=== PATIENT | female | born 1930 | race African-American/Black ===

== ENCOUNTER 2017-01-31 08:39 | Inpatient (IN) | payer MEDICARE ==
[~2017-01-31] VITALS: Ht 165.1 cm; Wt 63.5 kg
[~2017-01-31 08:39] MED LIST: ASPI-482 PO; Aspirin PO; CYCL1DRO OU; DONE10TA14 PO; FERR-26 PO; LEVO25TA2 PO; OXYB5TAB7 PO; PANT20TA2 PO; PANT40TA3 PO
[2017-01-31] MEDS ORDERED: IV NORMAL SALINE 500ML BAG 500 ML IV ONE ×2 (09:00→11:15)
--- NOTE | 2017-01-31 09:03 | PHYS DOC ---
Past Medical History Past Medical History: Dementia, Diabetes-Type II, GERD, Other Past Surgical History: Hysterectomy Alcohol Use: None Drug Use: None Adult General Chief Complaint Chief Complaint: MECHANICAL FALL HPI HPI 86 yo female who present after a fall last evening in which she states she was trying to get out of bed and fell. She states she fell onto her left side and laid there for 10-12 hour before being able to call for help. She has an obvious left wrist swelling and bruising is also complaining of left hip pain as well. There is no obvious shortening of the left lower extremity. Just complaining primarily of left wrist pain and is unable to move her left wrist secondary to pain. She denies hitting her head or having any loss consciousness. She lives alone and takes no medications. She denies any chest pain or SOB. Review of Systems Review of Systems Constitutional: Denies fever or chills [] Eyes: Denies change in visual acuity, redness, or eye pain [] HENT: Denies nasal congestion or sore throat [] Respiratory: Denies cough or shortness of breath [] Cardiovascular: No additional information not addressed in HPI [] GI: Denies abdominal pain, nausea, vomiting, bloody stools or diarrhea [] : Denies dysuria or hematuria [] Musculoskeletal: Denies back pain, has joint pain [] Integument: Denies rash or skin lesions [] Neurologic: Denies headache, focal weakness or sensory changes [] Endocrine: Denies polyuria or polydipsia [] Current Medications Current Medications Current Medications Medications (Trade) Dose Ordered Sig/Thom Start Time Stop Time Status Last Admin Dose Admin Acetaminophen 650 mg 650 mg PRN Q4HRS PRN 01/31/17 12:00 02/01/17 11:59 Fentanyl Citrate (Fentanyl 2ml Vial) 50 mcg PRN Q2HR PRN 01/31/17 12:00 02/01/17 11:59 Fentanyl Citrate 50 mcg 50 mcg 1X ONCE 01/31/17 10:15 01/31/17 10:16 DC 01/31/17 10:20 50 MCG Ondansetron HCl (Zofran) 4 mg PRN Q8HRS PRN 01/31/17 12:00 02/01/17 11:59 Sodium Chloride (Iv Sodium Chloride 0.9% 500ml Bag) 500 ml @ 500 mls/hr 1X ONCE 01/31/17 11:15 01/31/17 12:14 DC Sodium Chloride (Iv Sodium Chloride 0.9% 1000ml Bag) 1,000 ml @ 100 mls/hr 1X ONCE 01/31/17 12:00 01/31/17 21:59 Allergies Allergies Allergies Coded Allergies Type Severity Reaction Last Updated Verified No Known Drug Allergies 11/04/13 No Physical Exam Physical Exam Constitutional: Well developed, well nourished, no acute distress, non-toxic appearance. [] HENT: Normocephalic, atraumatic, bilateral external ears normal, oropharynx moist, no oral exudates, nose normal. [] Eyes: PERRLA, EOMI, conjunctiva normal, no discharge. [] Neck: Normal range of motion, no tenderness, supple, no stridor. [] Cardiovascular:Heart rate regular rhythm, no murmur [] Lungs & Thorax: Bilateral breath sounds clear to auscultation [] Abdomen: Bowel sounds normal, soft, no tenderness, no masses, no pulsatile masses. [] Skin: Warm, dry, no erythema, no rash. [] Back: No tenderness, no CVA tenderness. [] Extremities: Moderate left wrist tenderness with swelling and deformity, no cyanosis, no clubbing, ROM limited in left wrist secondary to pain. [] Neurologic: Alert and oriented X 3, normal motor function, normal sensory function, no focal deficits noted. [] Psychologic: Affect normal, judgement normal, mood normal. [] Current Patient Data Vital Signs Vital Signs Date Time Temp Pulse Resp B/P Pulse Ox O2 Delivery O2 Flow Rate FiO2 01/31/17 10:20 22 01/31/17 08:45 98.8 105 186/99 97 Room Air 98.8 Lab Values Laboratory Tests Test 01/31/17 09:10 01/31/17 09:17 01/31/17 11:05 01/31/17 11:45 White Blood Count 12.8x10^3/uL (4.0-11.0) H Red Blood Count 5.23x10^6/uL (3.50-5.40) Hemoglobin 11.8g/dL (12.0-15.5) L Hematocrit 37.5% (36.0-47.0) Mean Corpuscular Volume 72fL (79-100) L Mean Corpuscular Hemoglobin 23pg (25-35) L Mean Corpuscular Hemoglobin Concent 32g/dL (31-37) Red Cell Distribution Width 18.8% (11.5-14.5) H Platelet Count 368x10^3/uL (140-400) Neutrophils (%) (Auto) 84% (31-73) H Lymphocytes (%) (Auto) 8% (24-48) L Monocytes (%) (Auto) 8% (0-9) Eosinophils (%) (Auto) 0% (0-3) Basophils (%) (Auto) 0% (0-3) Neutrophils # (Auto) 10.8x10^3uL (1.8-7.7) H Lymphocytes # (Auto) 1.0x10^3/uL (1.0-4.8) Monocytes # (Auto) 1.0x10^3/uL (0.0-1.1) Eosinophils # (Auto) 0.0x10^3/uL (0.0-0.7) Basophils # (Auto) 0.1x10^3/uL (0.0-0.2) Platelet Estimate Pending Troponin I Quantitative < 0.017ng/mL (0.000-0.055) Urine Collection Type U cath Urine Color Yellow Urine Clarity Clear Urine pH 7.0 Urine Specific [place] 1.020 Urine Protein Negativemg/dL (NEG-TRACE) Urine Glucose (UA) Negativemg/dL (NEG) Urine Ketones (Stick) Negativemg/dL (NEG) Urine Blood Negative (NEG) Urine Nitrite Negative (NEG) Urine Bilirubin Negative (NEG) Urine Urobilinogen Dipstick 0.2mg/dL (0.2 mg/dL) Urine Leukocyte Esterase Negative (NEG) Urine RBC 0/HPF (0-2) Urine WBC 1-4/HPF (0-4) Urine Squamous Epithelial Cells Few/LPF Urine Bacteria Many/HPF (0-FEW) Urine Mucus Slight/LPF Sodium Level 136mmol/L (136-145) Potassium Level 4.4mmol/L (3.5-5.1) Chloride Level 101mmol/L (98-107) Carbon Dioxide Level 24mmol/L (21-32) Anion Gap 11 (6-14) Blood Urea Nitrogen 20mg/dL (7-20) Creatinine 1.2mg/dL (0.6-1.0) H Estimated GFR (Cockcroft-Gault) 51.8 Glucose Level 132mg/dL (70-99) H Calcium Level 9.1mg/dL (8.5-10.1) Creatine Kinase 134U/L (26-192) Laboratory Tests 01/31/17 09:10 Laboratory Tests 01/31/17 11:45 EKG EKG EKG as interpreted by me shows a sinus tachycardia with a rate of 104 bpm. There are no obvious ischemic findings. Intervals are normal. Radiology/Procedures Radiology/Procedures CT of the head without contrast demonstrated the following: There is prominence of cortical sulci and ventricular system compatible with age related atrophy. There are areas of low-attenuation in both periventricular deep white matter suggesting small vessel ischemic changes. Normal mg-white differentiation is maintained. There is no extra axial fluid collection, intraparenchymal hemorrhage or mass lesion. The visualized portions of the orbits, paranasal sinuses and the mastoid air cells appear clear. The calvarium is intact. Exam performed: X-ray left elbow, left hip, left wrist and one view chest. History: Patient fell last night, complaining of left-sided pain. Date of service: 01/31/17. Comparison: X-ray left hand from 11/11/13 and one view chest from 09/29/16. 3 views left wrist findings: There is narrowing of first carpometacarpal joint with periarticular sclerosis. The remainder alignment appears preserved. There is no acute fracture or dislocation. Diffuse soft tissue swelling is seen. No foreign body. Impression: 1. Diffuse soft tissue swelling without underlying acute bony abnormality. 2. 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 End impression Single supine AP view chest: Heart size is apparently enlarged probably accentuated due to supine position. Ectatic tortuous aorta with atheromatous calcification of the aortic knob. Prominent interstitial markings are seen in both lungs. No focal infiltrates, effusion or pneumothorax seen. Bones are normal Impression: 1. No acute cardiac pulmonary process seen. 2. Hiatal hernia redemonstrated. End impression. 2 views left hip findings: Single AP view pelvis and 2 views left hip are obtained. Mild narrowing of both hip joints with mild degenerative arthrosis Normal sacroiliac joints is maintained. There is no acute fracture or dislocation. Spondylotic changes involving the lumbar spine. Nonspecific bowel gas pattern. Impression: 1. No acute abnormality seen in the single view pelvis and left hip. 2. Early degenerative arthrosis involving both hips. End impression. Left elbow 3 views: Normal alignment of the elbow joint is preserved. There is no acute fracture or dislocation. No soft tissue swelling or joint effusion seen. Impression: 1. No acute abnormality seen in the left elbow. DICTATED and SIGNED BY: DOROTHY ORELLANA MD DATE: 01/31/17 1021 CC: ALEXEI SUNSHINE DO; KIARA RIVERA MD ~ Course & Med Decision Making Course & Med Decision Making Pertinent Labs and Imaging studies reviewed. (See chart for details) 86 yo old female who had a fall and was down for multiple hours will be admitted to the hospital for further evaluation and treatment. She has extensive pain to the left hip and left wrist and I deemed her to be a significant fall risk. Her laboratory workup was fairly unremarkable. She has a slightly elevated white count but no obvious source of infection is seen and her urinalysis is negative for signs of infection. I performed a chest few that did not reveal any signs of pneumonia. There are no acute findings on any of her plain films. A CT of her head was also negative for any acute intracranial pathology. I discussed the need to admit the patient with the hospitalist, Dr. Munroe, who agreed to accept the patient for further evaluation and treatment. Dragon Disclaimer Dragon Disclaimer This electronic medical record was generated, in whole or in part, using a voice recognition dictation system. Departure Departure Impression: Primary Impression: Weakness Disposition: ADMITTED INPATIENT Admitting Physician: Kane Munroe Condition: STABLE Referrals: KIARA RIVERA MD (PCP) ALEXEI SUNSHINE DO Jan 31, 2017 09:02
[2017-01-31] MEDS ORDERED: FENTANYL PF 100 MCG/2 ML VIAL. IV ONE ×2 (09:15→10:15)
--- NOTE | 2017-01-31 09:40 | RAD ---
Exam performed: CT scan of the head without contrast. Date of Service: 01/31/17. Comparison: CT head without contrast from 04/11/15. Clinical History: Headache, status post fall, history of dementia. Technique: Helical acquisitions are obtained from the foramen magnum to the vertex without intravenous administration of contrast. Findings: There is prominence of cortical sulci and ventricular system compatible with age related atrophy. There are areas of low-attenuation in both periventricular deep white matter suggesting small vessel ischemic changes. Normal mg-white differentiation is maintained. There is no extra axial fluid collection, intraparenchymal hemorrhage or mass lesion. The visualized portions of the orbits, paranasal sinuses and the mastoid air cells appear clear. The calvarium is intact. Impression: 1. Age-appropriate atrophy without any acute intracranial process. PQRS Compliance Statement: One or more of the following individualized dose reduction techniques were utilized for this examination: 1. Automated exposure control 2. Adjustment of the mA and/or kV according to patient size 3. Use of iterative reconstruction technique
--- NOTE | 2017-01-31 10:29 | RAD ---
Exam performed: X-ray left elbow, left hip, left wrist and one view chest. History: Patient fell last night, complaining of left-sided pain. Date of service: 01/31/17. Comparison: X-ray left hand from 11/11/13 and one view chest from 09/29/16. 3 views left wrist findings: There is narrowing of first carpometacarpal joint with periarticular sclerosis. The remainder alignment appears preserved. There is no acute fracture or dislocation. Diffuse soft tissue swelling is seen. No foreign body. Impression: 1. Diffuse soft tissue swelling without underlying acute bony abnormality. 2. 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 End impression Single supine AP view chest: Heart size is apparently enlarged probably accentuated due to supine position. Ectatic tortuous aorta with atheromatous calcification of the aortic knob. Prominent interstitial markings are seen in both lungs. No focal infiltrates, effusion or pneumothorax seen. Bones are normal Impression: 1. No acute cardiac pulmonary process seen. 2. Hiatal hernia redemonstrated. End impression. 2 views left hip findings: Single AP view pelvis and 2 views left hip are obtained. Mild narrowing of both hip joints with mild degenerative arthrosis Normal sacroiliac joints is maintained. There is no acute fracture or dislocation. Spondylotic changes involving the lumbar spine. Nonspecific bowel gas pattern. Impression: 1. No acute abnormality seen in the single view pelvis and left hip. 2. Early degenerative arthrosis involving both hips. End impression. Left elbow 3 views: Normal alignment of the elbow joint is preserved. There is no acute fracture or dislocation. No soft tissue swelling or joint effusion seen. Impression: 1. No acute abnormality seen in the left elbow.
[2017-01-31 11:08] LABS: BASO # 0.1 x10^3/uL (0.0-0.2); BASO % 0 % (0-3); EOS % 0 % (0-3); HEMATOCRIT 37.5 % (36.0-47.0); HEMOGLOBIN 11.8 g/dL (12.0-15.5); LYMPH % 8 % (24-48); MEAN CORPUSCULAR HEMOGLOBIN 23 pg (25-35); MEAN CORPUSCULAR HGB CONC 32 g/dL (31-37); MEAN CORPUSCULAR VOLUME 72 fL (79-100); MONO % 8 % (0-9); NEUT % 84 % (31-73); PLATELET COUNT 368 x10^3/uL (140-400); RED BLOOD COUNT 5.23 x10^6/uL (3.50-5.40); RED CELL DISTRIBUTION WIDTH 18.8 % (11.5-14.5); WHITE BLOOD COUNT 12.8 x10^3/uL (4.0-11.0)
--- NOTE | 2017-01-31 11:09 | EKG ---
[facility] [address] [place] [id number] Test Date: 2017-01-31 Test Time: 08:56:00 Pat Name: PATIENCE MCKEON Department: Room: Gender: F Roll Former: : 1930 Requested By: ALEXEI SUNSHINE Order Number: [id number] Reading MD: Measurements Intervals [place] Rate: 104 P: 68 MT: 188 QRS: 66 QRSD: 72 T: 56 QT: 320 QTc: 427 Interpretive Statements SINUS TACHYCARDIA RI6.01 Unconfirmed report No previous ECG available for comparison
[2017-01-31 11:23] LABS: BILIRUBIN,URINE NEGATIVE (NEG); GLUCOSE,URINE NEGATIVE (NEG); NITRITE,URINE NEGATIVE (NEG); PROTEIN,URINE NEGATIVE (NEG-TRACE); UROBILINOGEN,URINE 0.2 mg/dL (0.2 mg/dL)
--- NOTE | 2017-01-31 11:42 | ACF ---
Admission Forms Criteria MUSCULOSKELETAL DISEASE GRG Clinical Indications for Admission to Inpatient Care (Place 'X' for any and all applicable criteria): Hospital admission is needed for appropriate care of the patient because of ANY ONE of the following: [X]I. Fracture, dislocation, or other musculoskeletal injury requiring inpatient care(medical) as indicated by ANY ONE of the following(4)(5)(6)(7) [ ]a) Vertebral fracture requiring observation for instability or neurologic compromise (8) [ ]b) Compartment syndrome (proven or cannot be ruled out during observation level of care) (9) [ ]c) Limb-threatening injury [ ]d) Major injury requiring inpatient stabilization such as traction initiation or external fixation before internal fixation or closure of complex or open fracture [ ]e) Major injury requiring inpatient treatment after emergency or observation level care (as appropriate) [X]f) Severe pain requiring acute inpatient management [ ]II. Newly diagnosed or suspected bone, joint, or orthopedic device infection (e.g., osteomyelitis, septic arthritis) needing ANY ONE of the following(1)(2)(3) [ ]a) IV antibiotics that cannot be initiated in other than inpatient setting (e.g., patient too unstable or home infusion not available) [ ]b) Device removal or replacement [ ]c) Bone or soft tissue debridement [ ]d) Joint drainage (drain placement or repetitive aspirations) [ ]III. Severe rheumatologic disease (e.g., systemic lupus erythematosus, rheumatoid arthritis) with complications or comorbidities (Also use Optimal Recovery Care Criteria or General Recovery Criteria as appropriate on the basis of predominant condition), including ANY ONE of the following(10 )(11)(12)(13) [ ]a) Severe infection (e.g., [employer] SUPER[employer]OR infection, sepsis) (14) [ ]b) Respiratory complications, including ANY ONE of the following: [ ]i) Pleural effusion with respiratory compromise [ ]ii) Pulmonary hypertension with congestive failure [ ]iii) Respiratory failure [ ]iv) Pulmonary hemorrhage (15) [ ]c) Hematologic disease, including ANY ONE of the following: [ ]i) Coagulopathy with bleeding [ ]ii) Thrombosis with hypercoagulable state [ ]iii) Thrombotic thrombocytopenic purpura [ ]d) Cerebritis with seizures, psychosis, or other severe abnormalities [ ]e) Vertebral destruction with monitoring needed for cervical myelopathy& possible respiratory compromise [ ]f) Exacerbation that requires inpatient treatment (e.g., intravenous immunosuppression) (16) [ ]g) Acute renal failure [ ]IV. Severe vasculitis with complications or comorbidities (Also use Optimal Recovery Care Criteria or General Recovery Criteria as appropriate on the basis of predominant condition), including ANY ONE of the following(11)(12)(17)(18)(19)(20) [ ]a) PR[employer] SUPER[employer]OR vasculitis with seizures, psychosis, or other severe abnormalities (22) [ ]b) Renal failure (16) [ ]c) Pulmonary hemorrhage (15) [ ]d) Cerebral infarction [ ]e) Gastrointestinal ischemia [ ]f) Gangrene or threatened amputation [ ]g) Exacerbation that requires inpatient treatment (e.g., intravenous immunosuppression) (19)(21) [ ]V. Severe myopathy as indicated by ANY ONE of the following (28)(29) [ ]a) New onset of airway compromise or inability to swallow [ ]b) Respiratory deterioration with observation needed for impending respiratory failure [ ]c) Exacerbation that requires inpatient treatment (e.g., intravenous immunosuppression) [ ]. Severe gout (crystal arthropathy) as indicated by ANY ONE of the following (23)(24) [ ]a) Severe pain requiring acute inpatient management [ ]b) Exacerbation that requires inpatient treatment (e.g., intravenous treatment) [ ]VII.Rhabdomyolysis and ANY ONE of the following (25)(26)(27) [ ]a) Acute renal failure [ ]b) Need for intravenous hydration after emergency or observation level care (as appropriate) [ ]c) Inability to maintain oral hydration [ ]d) Change in mental status [ ]e) Electrolyte abnormality that remains after emergency or observation level care (as appropriate) [ ]VIII Post amputation complication, as indicated by ANY ONE of the following [ ]a) Infection [ ]b) Dehiscence [ ]c) Myodesis failure [ ]IX. Severe pain requiring acute inpatient management as indicated by ALL of the following (30)(31)(32) [ ]a) Continuous or frequent (e.g., every 2 to 4 hrs) parenteral analgesics required [A] [ ]b) Rapid improvement expected from treatment or acute intervention ( e.g., surgery, anesthesia procedure[B] [ ]X. Musculoskeletal Disease and ALL of the following: [ ]a) Symptom or finding for which emergency and observation care have failed or are not considered appropriate (Use General Criteria: Observation Care as appropriate) [ ]b) Presence of ANY ONE of the following [ ]i) A General Admission Criteria [ ]ii) A Pediatric General Admission Criteria The original [facility] content created by [facility] has been revised. The portions of the content which have been revised are identified through the use of italic text or in bold, and [facility] has neither reviewed nor approved the modified material. All other unmodified content is copyright [facility]. Please see references footnoted in the original [facility] edition 2016 Admission Criteria Met?: Yes WENDY RICE Jan 31, 2017 11:42
[2017-01-31 11:43] LABS: BACTERIA,URINE MANY /HPF (0-FEW); RBC,URINE 0 /HPF (0-2); SQUAMOUS EPITHELIAL CELL,UR FEW /LPF
[2017-01-31] MEDS ORDERED: FENTANYL PF 100 MCG/2 ML VIAL. IV PRN (12:00)
[2017-01-31] MEDS ORDERED: ACETAMINOPHEN 325 MG TABLET. PO PRN (12:00)
[2017-01-31] MEDS ORDERED: IV NORMAL SALINE 1000ML BAG 1,000 ML IV ONE (12:00)
[2017-01-31] MEDS ORDERED: ONDANSETRON PF 4 MG/2 ML VIAL. IV PRN ×2 (12:00→17:15)
[2017-01-31 12:20] LABS: CALCIUM 9.1 mg/dL (8.5-10.1); CREATININE 1.2 mg/dL (0.6-1.0); GFR 51.8; POTASSIUM 4.4 mmol/L (3.5-5.1)
[2017-01-31 13:30] VITALS: BP 135/86
[2017-01-31] MEDS ORDERED: CYCL1DRO EACHEYE (14:07)
[2017-01-31 15:00] VITALS: BP 132/80
[2017-01-31] MEDS: PANTOPRAZOLE 40 MG TABLET. PO SCH (17:00)
[2017-01-31] MEDS: FERROUS SULFATE 325 MG TABLET PO SCH (17:00)
[2017-01-31] MEDS ORDERED: ASPIRIN 81 MG TAB.CHEW PO SCH (17:00)
--- NOTE | 2017-01-31 17:24 | PDOC1 ---
History and Physical Date of Admission Date of Admission 01/31/17 Identification/Chief Complaint Chief Complaint fall Problems: Source Source: Chart review, Patient History of Present Illness History of Present Illness HPI HPI 86 yo female who present after a fall 2 days ago. Pt lives alone, likely mild to moderate dementia. pt is a poor historian. PT said she was walking to the bathroom and fell on the floor, hit left side and back, couldnot get up 2/2 pain, about 10-12hours later she called her daughter who sent her here today for pain. She has an obvious left wrist swelling and bruising is also complaining of left hip pain as well. There is no obvious shortening of the left lower extremity. Just complaining primarily of left wrist pain and is unable to move her left wrist secondary to pain. She denies hitting her head or having any loss consciousness. She lives alone and takes no medications. She denies any chest pain or SOB. XR neg for fx Past Medical History Cardiovascular: No pertinent hx Pulmonary: No pertinent hx CENTRAL NERVOUS SYSTEM: Dementia GI: GERD, Other Heme/Onc: No pertinent hx Hepatobiliary: No pertinent hx Psych: No pertinent hx Rheumatologic: No pertinent hx Infectious disease: No pertinent hx Renal/: No pertinent hx Endocrine: No pertinent hx Past Surgical History Past Surgical History: Cataract Removal, Hysterectomy, Other Family History Family History: Cancer, Heart Disease, Stroke Social History Smoke: No ALCOHOL: none Drugs: None Current Problem List Problem List Problems Medical Problems: (1) Weakness Status: Acute Current Medications Current Medications Current Medications Medications (Trade) Dose Ordered Sig/Thom Start Time Stop Time Status Last Admin Dose Admin Acetaminophen 650 mg 650 mg PRN Q4HRS PRN 01/31/17 12:00 02/01/17 11:59 Aspirin (Children'S Aspirin) 81 mg DAILYWBKFT 01/31/17 17:00 Cyclosporine (Restasis) 1 drop BID 01/31/17 21:00 Fentanyl Citrate (Fentanyl 2ml Vial) 50 mcg PRN Q2HR PRN 01/31/17 12:00 02/01/17 11:59 Fentanyl Citrate 50 mcg 50 mcg 1X ONCE 01/31/17 10:15 01/31/17 10:16 DC 01/31/17 10:20 50 MCG Ferrous Sulfate (Feosol) 325 mg DAILYWBKFT 01/31/17 17:00 Ondansetron HCl (Zofran) 4 mg PRN Q8HRS PRN 01/31/17 12:00 02/01/17 11:59 Pantoprazole Sodium (Protonix) 40 mg DAILYAC 01/31/17 17:00 Sodium Chloride (Iv Sodium Chloride 0.9% 500ml Bag) 500 ml @ 500 mls/hr 1X ONCE 01/31/17 11:15 01/31/17 12:14 DC 01/31/17 12:48 500 MLS/HR Sodium Chloride (Iv Sodium Chloride 0.9% 1000ml Bag) 1,000 ml @ 100 mls/hr 1X ONCE 01/31/17 12:00 01/31/17 21:59 01/31/17 12:48 100 MLS/HR Allergies Allergies Allergies Coded Allergies Type Severity Reaction Last Updated Verified No Known Drug Allergies 11/04/13 No ROS Review of System CONSTITUTIONAL: No fever or chills EYES: No recent changes SKIN: No rash or itching CARDIOVASCULAR: No chest pain, syncope, palpitations, or edema RESPIRATORY: No SOB or cough GASTROINTESTINAL: No nausea, vomiting or abdominal pain NEUROLOGICAL: No headaches or weakness ENDOCRINE: No cold or heat intolerance GENITOURINARY: No urgency or frequency of urination MUSCULOSKELETAL: No back pain or joint pain LYMPHATICS: No enlarged lymph nodes PSYCHIATRIC: No anxiety or depression Physical Exam Physical Exam GEN.: No apparent distress. Alert and oriented. aaox2, to person, place HEENT: Head is normocephalic, atraumatic NECK: Supple. LUNGS: Clear to auscultation. HEART: RRR, S1, S2 present. Peripheral pulses intact ABDOMEN: Soft, nontender. Positive bowel sounds. EXTREMITIES: Without any cyanosis. left wrist pain, has splinter on. left hip and back pain, hard to move lower ext 2/2 pain NEUROLOGIC: Normal speech, normal tone PSYCHIATRIC: Normal affect, normal mood. SKIN: No ulcerations Vitals Vitals Vital Signs Date Time Temp Pulse Resp B/P Pulse Ox O2 Delivery O2 Flow Rate FiO2 01/31/17 15:00 98.3 96 20 132/80 98 Room Air 98.3 Labs Labs Laboratory Tests Test 01/31/17 09:10 01/31/17 09:17 01/31/17 11:05 01/31/17 11:45 White Blood Count 12.8x10^3/uL (4.0-11.0) Red Blood Count 5.23x10^6/uL (3.50-5.40) Hemoglobin 11.8g/dL (12.0-15.5) Hematocrit 37.5% (36.0-47.0) Mean Corpuscular Volume 72fL (79-100) Mean Corpuscular Hemoglobin 23pg (25-35) Mean Corpuscular Hemoglobin Concent 32g/dL (31-37) Red Cell Distribution Width 18.8% (11.5-14.5) Platelet Count 368x10^3/uL (140-400) Neutrophils (%) (Auto) 84% (31-73) Lymphocytes (%) (Auto) 8% (24-48) Monocytes (%) (Auto) 8% (0-9) Eosinophils (%) (Auto) 0% (0-3) Basophils (%) (Auto) 0% (0-3) Neutrophils # (Auto) 10.8x10^3uL (1.8-7.7) Lymphocytes # (Auto) 1.0x10^3/uL (1.0-4.8) Monocytes # (Auto) 1.0x10^3/uL (0.0-1.1) Eosinophils # (Auto) 0.0x10^3/uL (0.0-0.7) Basophils # (Auto) 0.1x10^3/uL (0.0-0.2) Troponin I Quantitative < 0.017ng/mL (0.000-0.055) Urine Collection Type U cath Urine Color Yellow Urine Clarity Clear Urine pH 7.0 Urine Specific [place] 1.020 Urine Protein Negativemg/dL (NEG-TRACE) Urine Glucose (UA) Negativemg/dL (NEG) Urine Ketones (Stick) Negativemg/dL (NEG) Urine Blood Negative (NEG) Urine Nitrite Negative (NEG) Urine Bilirubin Negative (NEG) Urine Urobilinogen Dipstick 0.2mg/dL (0.2 mg/dL) Urine Leukocyte Esterase Negative (NEG) Urine RBC 0/HPF (0-2) Urine WBC 1-4/HPF (0-4) Urine Squamous Epithelial Cells Few/LPF Urine Bacteria Many/HPF (0-FEW) Urine Mucus Slight/LPF Sodium Level 136mmol/L (136-145) Potassium Level 4.4mmol/L (3.5-5.1) Chloride Level 101mmol/L (98-107) Carbon Dioxide Level 24mmol/L (21-32) Anion Gap 11 (6-14) Blood Urea Nitrogen 20mg/dL (7-20) Creatinine 1.2mg/dL (0.6-1.0) Estimated GFR (Cockcroft-Gault) 51.8 Glucose Level 132mg/dL (70-99) Calcium Level 9.1mg/dL (8.5-10.1) Creatine Kinase 134U/L (26-192) Laboratory Tests Test 01/31/17 09:10 01/31/17 09:17 01/31/17 11:05 01/31/17 11:45 White Blood Count 12.8x10^3/uL (4.0-11.0) Red Blood Count 5.23x10^6/uL (3.50-5.40) Hemoglobin 11.8g/dL (12.0-15.5) Hematocrit 37.5% (36.0-47.0) Mean Corpuscular Volume 72fL (79-100) Mean Corpuscular Hemoglobin 23pg (25-35) Mean Corpuscular Hemoglobin Concent 32g/dL (31-37) Red Cell Distribution Width 18.8% (11.5-14.5) Platelet Count 368x10^3/uL (140-400) Neutrophils (%) (Auto) 84% (31-73) Lymphocytes (%) (Auto) 8% (24-48) Monocytes (%) (Auto) 8% (0-9) Eosinophils (%) (Auto) 0% (0-3) Basophils (%) (Auto) 0% (0-3) Neutrophils # (Auto) 10.8x10^3uL (1.8-7.7) Lymphocytes # (Auto) 1.0x10^3/uL (1.0-4.8) Monocytes # (Auto) 1.0x10^3/uL (0.0-1.1) Eosinophils # (Auto) 0.0x10^3/uL (0.0-0.7) Basophils # (Auto) 0.1x10^3/uL (0.0-0.2) Troponin I Quantitative < 0.017ng/mL (0.000-0.055) Urine Collection Type U cath Urine Color Yellow Urine Clarity Clear Urine pH 7.0 Urine Specific [place] 1.020 Urine Protein Negativemg/dL (NEG-TRACE) Urine Glucose (UA) Negativemg/dL (NEG) Urine Ketones (Stick) Negativemg/dL (NEG) Urine Blood Negative (NEG) Urine Nitrite Negative (NEG) Urine Bilirubin Negative (NEG) Urine Urobilinogen Dipstick 0.2mg/dL (0.2 mg/dL) Urine Leukocyte Esterase Negative (NEG) Urine RBC 0/HPF (0-2) Urine WBC 1-4/HPF (0-4) Urine Squamous Epithelial Cells Few/LPF Urine Bacteria Many/HPF (0-FEW) Urine Mucus Slight/LPF Sodium Level 136mmol/L (136-145) Potassium Level 4.4mmol/L (3.5-5.1) Chloride Level 101mmol/L (98-107) Carbon Dioxide Level 24mmol/L (21-32) Anion Gap 11 (6-14) Blood Urea Nitrogen 20mg/dL (7-20) Creatinine 1.2mg/dL (0.6-1.0) Estimated GFR (Cockcroft-Gault) 51.8 Glucose Level 132mg/dL (70-99) Calcium Level 9.1mg/dL (8.5-10.1) Creatine Kinase 134U/L (26-192) VTE Prophylaxis Ordered VTE Prophylaxis Devices: Yes VTE Pharmacological Prophylaxi: Yes Assessment/Plan Assessment/Plan 1. left side joint pain post fall with bruise, no fx 2. recent fall in 09/2016 3. moderate dementia 4. dm2 no meds 5. gerd 6. ckd3 plan: 1. pt saw dr. Yen last time, asked nurse to call them to see if willing to take her from tmr. if so, will sign off tmr. 2. pain control ptot cont home meds dr. Bales consult SW FOR snf DVT PPX EVELYN SIMMONS MD Jan 31, 2017 17:24
[2017-01-31] MEDS: TRAMADOL 50 MG TABLET. PO PRN (18:01)
[2017-01-31 19:59] VITALS: BP 105/69
[2017-01-31 20:42] LABS: ANISOCYTOSIS SLIGHT; HYPOCHROMIA MOD; MICROCYTOSIS MOD; PLT ESTIMATE ADEQUATE (ADEQUATE)
[2017-01-31] MEDS ORDERED: CYCLOSPORINE 0.05% OPTH DROPERETTE. OU SCH (21:00)
[2017-01-31] MEDS: CYCLOSPORINE 0.05% OPTH DROPERETTE. OU SCH (22:04)
[2017-01-31] MEDS: HEPARIN PF for SUB-Q USE 5,000 UNIT/0.5 ML VIAL. SQ SCH (22:13)
[2017-01-31 23:31] VITALS: BP 95/61
[2017-02-01 03:59] VITALS: BP 98/66
[2017-02-01 05:22] LABS: BASO % 0 % (0-3); EOS % 0 % (0-3); HEMATOCRIT 31.6 % (36.0-47.0); LYMPH % 17 % (24-48); MEAN CORPUSCULAR HEMOGLOBIN 23 pg (25-35); MEAN CORPUSCULAR HGB CONC 32 g/dL (31-37); MEAN CORPUSCULAR VOLUME 72 fL (79-100); MONO % 12 % (0-9); NEUT % 70 % (31-73); PLATELET COUNT 293 x10^3/uL (140-400); RED BLOOD COUNT 4.39 x10^6/uL (3.50-5.40); RED CELL DISTRIBUTION WIDTH 18.6 % (11.5-14.5); WHITE BLOOD COUNT 11.2 x10^3/uL (4.0-11.0)
[2017-02-01 05:42] LABS: CALCIUM 8.6 mg/dL (8.5-10.1); CREATININE 1.3 mg/dL (0.6-1.0); GFR 47.2; POTASSIUM 4.2 mmol/L (3.5-5.1)
[2017-02-01] MEDS: HEPARIN PF for SUB-Q USE 5,000 UNIT/0.5 ML VIAL. SQ SCH ×3 (05:58→21:14)
--- NOTE | 2017-02-01 06:16 | PDOC ---
SUBJECTIVE Subjective Pt states that she doesn't know how she is doing; she is feeling more confused over the last 48 hours. She thinks her pain is better and that she is eating okay. OBJECTIVE Vital Signs Vital Signs Date Time Temp Pulse Resp B/P Pulse Ox O2 Delivery O2 Flow Rate FiO2 02/01/17 03:59 98.3 89 20 98/66 93 Room Air 98.3 01/31/17 23:31 98.4 95 18 95/61 92 Room Air 98.4 01/31/17 20:05 Room Air 01/31/17 19:59 98.9 96 18 105/69 95 Room Air 98.9 01/31/17 19:01 98 01/31/17 15:00 98.3 96 20 132/80 98 Room Air 98.3 01/31/17 13:30 98.5 103 20 135/86 93 Room Air 98.5 01/31/17 13:00 98 22 141/70 93 01/31/17 12:00 92 21 141/67 94 01/31/17 11:00 108 24 149/79 97 01/31/17 10:50 22 01/31/17 10:20 22 01/31/17 10:00 105 22 146/80 94 01/31/17 09:45 21 01/31/17 09:15 17 01/31/17 08:45 98.8 105 11 186/99 97 Room Air 98.8 I & O Intake and Output 02/01/17 07:00 Intake Total 620 ml Balance 620 ml Intake Oral 120 ml IV Total 500 ml # Voids 2 PHYSICAL EXAM Physical Exam GEN: NAD, alert and oriented to person HEENT: MMM, EOMI, no scleral icterus/injection Cardiac: RRR, no M/R/G Lungs: CTAB, regular breathing rate and effort Abd: soft, nondistended, NTTP Ext: no erythema/edema LE bilaterally Nuero: CN2-12 GI ASSESSMENT/PLAN Assessment/Plan Pt is a 86yo F admitted for fall 1)Recurrent falls with dementia- social work consulted. Pt apparently lives at home alone per H&P. Pt's pain currently well controlled 2)UTI- urine culture still pending. Will start Ciprofloxacin 3)DM2- previously well controlled with HbA1C 04/06 of 6.2. Pt is not on any medications. Pt may be more in the pre-diabetic range, will repeat HbA1C 4)CKD- pt's Cr is stable at 1.3. No electrolyte abnormalities 5)GERD- pt continued on Pantoprazole 6)Anemia- mild with dilutional contribution. CTM Problems: COMMENT Lab Laboratory Tests Test 01/31/17 09:10 01/31/17 09:17 01/31/17 11:05 01/31/17 11:45 White Blood Count 12.8x10^3/uL (4.0-11.0) Red Blood Count 5.23x10^6/uL (3.50-5.40) Hemoglobin 11.8g/dL (12.0-15.5) Hematocrit 37.5% (36.0-47.0) Mean Corpuscular Volume 72fL (79-100) Mean Corpuscular Hemoglobin 23pg (25-35) Mean Corpuscular Hemoglobin Concent 32g/dL (31-37) Red Cell Distribution Width 18.8% (11.5-14.5) Platelet Count 368x10^3/uL (140-400) Neutrophils (%) (Auto) 84% (31-73) Lymphocytes (%) (Auto) 8% (24-48) Monocytes (%) (Auto) 8% (0-9) Eosinophils (%) (Auto) 0% (0-3) Basophils (%) (Auto) 0% (0-3) Neutrophils # (Auto) 10.8x10^3uL (1.8-7.7) Lymphocytes # (Auto) 1.0x10^3/uL (1.0-4.8) Monocytes # (Auto) 1.0x10^3/uL (0.0-1.1) Eosinophils # (Auto) 0.0x10^3/uL (0.0-0.7) Basophils # (Auto) 0.1x10^3/uL (0.0-0.2) Platelet Estimate Adequate (ADEQUATE) Hypochromasia Mod Anisocytosis Slight Microcytosis Mod Troponin I Quantitative < 0.017ng/mL (0.000-0.055) Urine Collection Type U cath Urine Color Yellow Urine Clarity Clear Urine pH 7.0 Urine Specific [place] 1.020 Urine Protein Negativemg/dL (NEG-TRACE) Urine Glucose (UA) Negativemg/dL (NEG) Urine Ketones (Stick) Negativemg/dL (NEG) Urine Blood Negative (NEG) Urine Nitrite Negative (NEG) Urine Bilirubin Negative (NEG) Urine Urobilinogen Dipstick 0.2mg/dL (0.2 mg/dL) Urine Leukocyte Esterase Negative (NEG) Urine RBC 0/HPF (0-2) Urine WBC 1-4/HPF (0-4) Urine Squamous Epithelial Cells Few/LPF Urine Bacteria Many/HPF (0-FEW) Urine Mucus Slight/LPF Sodium Level 136mmol/L (136-145) Potassium Level 4.4mmol/L (3.5-5.1) Chloride Level 101mmol/L (98-107) Carbon Dioxide Level 24mmol/L (21-32) Anion Gap 11 (6-14) Blood Urea Nitrogen 20mg/dL (7-20) Creatinine 1.2mg/dL (0.6-1.0) Estimated GFR (Cockcroft-Gault) 51.8 Glucose Level 132mg/dL (70-99) Calcium Level 9.1mg/dL (8.5-10.1) Creatine Kinase 134U/L (26-192) Test 02/01/17 04:40 White Blood Count 11.2x10^3/uL (4.0-11.0) Red Blood Count 4.39x10^6/uL (3.50-5.40) Hemoglobin 10.0g/dL (12.0-15.5) Hematocrit 31.6% (36.0-47.0) Mean Corpuscular Volume 72fL (79-100) Mean Corpuscular Hemoglobin 23pg (25-35) Mean Corpuscular Hemoglobin Concent 32g/dL (31-37) Red Cell Distribution Width 18.6% (11.5-14.5) Platelet Count 293x10^3/uL (140-400) Neutrophils (%) (Auto) 70% (31-73) Lymphocytes (%) (Auto) 17% (24-48) Monocytes (%) (Auto) 12% (0-9) Eosinophils (%) (Auto) 0% (0-3) Basophils (%) (Auto) 0% (0-3) Neutrophils # (Auto) 7.9x10^3uL (1.8-7.7) Lymphocytes # (Auto) 2.0x10^3/uL (1.0-4.8) Monocytes # (Auto) 1.3x10^3/uL (0.0-1.1) Eosinophils # (Auto) 0.0x10^3/uL (0.0-0.7) Basophils # (Auto) 0.0x10^3/uL (0.0-0.2) Sodium Level 136mmol/L (136-145) Potassium Level 4.2mmol/L (3.5-5.1) Chloride Level 101mmol/L (98-107) Carbon Dioxide Level 23mmol/L (21-32) Anion Gap 12 (6-14) Blood Urea Nitrogen 20mg/dL (7-20) Creatinine 1.3mg/dL (0.6-1.0) Estimated GFR (Cockcroft-Gault) 47.2 Glucose Level 102mg/dL (70-99) Calcium Level 8.6mg/dL (8.5-10.1) DARON MATHIS MD Feb 01, 2017 06:16
[2017-02-01 07:00] VITALS: BP 109/61
[2017-02-01] MEDS: PANTOPRAZOLE 40 MG TABLET. PO SCH (08:57)
[2017-02-01] MEDS: ASPIRIN ENTERIC COATED 81 MG TABLET.DR. PO SCH (08:57)
[2017-02-01] MEDS: CYCLOSPORINE 0.05% OPTH DROPERETTE. OU SCH ×2 (08:57→20:51)
[2017-02-01] MEDS: FERROUS SULFATE 325 MG TABLET PO SCH (08:57)
[2017-02-01] MEDS: TRAMADOL 50 MG TABLET. PO PRN ×2 (08:57→20:51)
[2017-02-01] MEDS ORDERED: FERROUS SULFATE 325 MG TABLET PO SCH (09:00)
[2017-02-01] MEDS ORDERED: CIPROFLOXACIN HCL 250 MG TABLET PO SCH (09:00)
[2017-02-01] MEDS ORDERED: PANTOPRAZOLE 40 MG TABLET. PO SCH (09:00)
[2017-02-01 11:02] VITALS: BP 89/57
[2017-02-01] MEDS: ACETAMINOPHEN 325 MG TABLET. PO PRN (12:15)
[2017-02-01 14:51] VITALS: BP 118/65
[2017-02-01 19:00] VITALS: BP 108/66
[2017-02-01] MEDS: CIPROFLOXACIN HCL 250 MG TABLET PO SCH (20:51)
[2017-02-01 23:00] VITALS: BP 109/70
[2017-02-02 03:00] VITALS: BP 100/70
[2017-02-02] MEDS: PANTOPRAZOLE 40 MG TABLET. PO SCH (03:51)
[2017-02-02] MEDS: TRAMADOL 50 MG TABLET. PO PRN (03:52)
[2017-02-02] MEDS: HEPARIN PF for SUB-Q USE 5,000 UNIT/0.5 ML VIAL. SQ SCH ×3 (04:01→21:11)
[2017-02-02 06:04] LABS: BASO % 0 % (0-3); EOS % 2 % (0-3); HEMATOCRIT 33.5 % (36.0-47.0); HEMOGLOBIN 10.6 g/dL (12.0-15.5); LYMPH # 1.4 x10^3/uL (1.0-4.8); LYMPH % 20 % (24-48); MEAN CORPUSCULAR HEMOGLOBIN 23 pg (25-35); MEAN CORPUSCULAR HGB CONC 32 g/dL (31-37); MEAN CORPUSCULAR VOLUME 73 fL (79-100); MONO % 9 % (0-9); NEUT % 69 % (31-73); PLATELET COUNT 296 x10^3/uL (140-400); RED CELL DISTRIBUTION WIDTH 18.7 % (11.5-14.5); WHITE BLOOD COUNT 6.7 x10^3/uL (4.0-11.0)
[2017-02-02 06:12] LABS: CALCIUM 8.5 mg/dL (8.5-10.1); CREATININE 1.3 mg/dL (0.6-1.0); GFR 47.2; POTASSIUM 4.2 mmol/L (3.5-5.1)
[2017-02-02 07:00] VITALS: BP 115/69
[2017-02-02] MEDS: ACETAMINOPHEN 325 MG TABLET. PO PRN (08:32)
[2017-02-02] MEDS: CIPROFLOXACIN HCL 250 MG TABLET PO SCH ×2 (08:33→20:43)
[2017-02-02] MEDS: FERROUS SULFATE 325 MG TABLET PO SCH (08:33)
[2017-02-02] MEDS: ASPIRIN ENTERIC COATED 81 MG TABLET.DR. PO SCH (08:33)
[2017-02-02] MEDS: CYCLOSPORINE 0.05% OPTH DROPERETTE. OU SCH ×2 (08:33→20:43)
[2017-02-02] MEDS ORDERED: methylPREDNISolone ACETATE 40 MG/ML VIAL. IM ONE (09:45)
[2017-02-02] MEDS ORDERED: BUPIVACAINE MPF 0.25% 10 ML VIAL. IJ ONE (09:45)
[2017-02-02] MEDS ORDERED: HYDROCODONE/APAP 7.5/325MG TABLET. PO PRN ×2 (09:45→11:00)
--- NOTE | 2017-02-02 10:48 | PDOC ---
PROGRESS NOTES Subjective Subjective She is complaining of pain in her left arm/wrist and lumbar back uncontrolled by tramadol, PT recommending SNU but she is not yet agreeable Objective Objective Vital Signs Date Time Temp Pulse Resp B/P Pulse Ox O2 Delivery O2 Flow Rate FiO2 02/02/17 10:04 Room Air 02/02/17 07:00 97.7 79 18 115/69 93 97.7 Intake and Output 02/02/17 07:00 Intake Total 910 ml Balance 910 ml Intake Oral 910 ml # Voids 4 Physical Exam Abdomen: Soft Heart: Regular rate Extremities: No clubbing, No cyanosis, No edema General: Alert, Oriented X3, Cooperative, moderate distress HEENT: Atraumatic Lungs: Clear to auscultation MUSCULOSKELETAL: Other (unable to raise left arm due to pain, wearing brace left arm) Neuro: Normal speech Psych/Mental Status: Mood NL Skin: No breakdown Assessment Assessment Problems Medical Problems: (1) Weakness - recent fall with lumbar back pain and left arm pain, reluctant to consider SNU but unable to care for herself, will consult Dr. Bales and change pain med to [employer] and image lumbar spine, consult case monitor for possible SNU transfer tomorrow Status: Acute Comment Review of Relevant I have reviewed the following items chilo (where applicable) has been applied. Labs Laboratory Tests Test 01/31/17 11:05 01/31/17 11:45 02/01/17 04:40 02/02/17 05:40 Urine Collection Type U cath Urine Color Yellow Urine Clarity Clear Urine pH 7.0 Urine Specific [place] 1.020 Urine Protein Negativemg/dL (NEG-TRACE) Urine Glucose (UA) Negativemg/dL (NEG) Urine Ketones (Stick) Negativemg/dL (NEG) Urine Blood Negative (NEG) Urine Nitrite Negative (NEG) Urine Bilirubin Negative (NEG) Urine Urobilinogen Dipstick 0.2mg/dL (0.2 mg/dL) Urine Leukocyte Esterase Negative (NEG) Urine RBC 0/HPF (0-2) Urine WBC 1-4/HPF (0-4) Urine Squamous Epithelial Cells Few/LPF Urine Bacteria Many/HPF (0-FEW) Urine Mucus Slight/LPF Sodium Level 136mmol/L (136-145) 136mmol/L (136-145) 137mmol/L (136-145) Potassium Level 4.4mmol/L (3.5-5.1) 4.2mmol/L (3.5-5.1) 4.2mmol/L (3.5-5.1) Chloride Level 101mmol/L (98-107) 101mmol/L (98-107) 104mmol/L (98-107) Carbon Dioxide Level 24mmol/L (21-32) 23mmol/L (21-32) 23mmol/L (21-32) Anion Gap 11 (6-14) 12 (6-14) 10 (6-14) Blood Urea Nitrogen 20mg/dL (7-20) 20mg/dL (7-20) 23mg/dL (7-20) Creatinine 1.2mg/dL (0.6-1.0) 1.3mg/dL (0.6-1.0) 1.3mg/dL (0.6-1.0) Estimated GFR (Cockcroft-Gault) 51.8 47.2 47.2 Glucose Level 132mg/dL (70-99) 102mg/dL (70-99) 96mg/dL (70-99) Calcium Level 9.1mg/dL (8.5-10.1) 8.6mg/dL (8.5-10.1) 8.5mg/dL (8.5-10.1) Creatine Kinase 134U/L (26-192) White Blood Count 11.2x10^3/uL (4.0-11.0) 6.7x10^3/uL (4.0-11.0) Red Blood Count 4.39x10^6/uL (3.50-5.40) 4.60x10^6/uL (3.50-5.40) Hemoglobin 10.0g/dL (12.0-15.5) 10.6g/dL (12.0-15.5) Hematocrit 31.6% (36.0-47.0) 33.5% (36.0-47.0) Mean Corpuscular Volume 72fL (79-100) 73fL (79-100) Mean Corpuscular Hemoglobin 23pg (25-35) 23pg (25-35) Mean Corpuscular Hemoglobin Concent 32g/dL (31-37) 32g/dL (31-37) Red Cell Distribution Width 18.6% (11.5-14.5) 18.7% (11.5-14.5) Platelet Count 293x10^3/uL (140-400) 296x10^3/uL (140-400) Neutrophils (%) (Auto) 70% (31-73) 69% (31-73) Lymphocytes (%) (Auto) 17% (24-48) 20% (24-48) Monocytes (%) (Auto) 12% (0-9) 9% (0-9) Eosinophils (%) (Auto) 0% (0-3) 2% (0-3) Basophils (%) (Auto) 0% (0-3) 0% (0-3) Neutrophils # (Auto) 7.9x10^3uL (1.8-7.7) 4.6x10^3uL (1.8-7.7) Lymphocytes # (Auto) 2.0x10^3/uL (1.0-4.8) 1.4x10^3/uL (1.0-4.8) Monocytes # (Auto) 1.3x10^3/uL (0.0-1.1) 0.6x10^3/uL (0.0-1.1) Eosinophils # (Auto) 0.0x10^3/uL (0.0-0.7) 0.1x10^3/uL (0.0-0.7) Basophils # (Auto) 0.0x10^3/uL (0.0-0.2) 0.0x10^3/uL (0.0-0.2) Laboratory Tests Test 02/02/17 05:40 White Blood Count 6.7x10^3/uL (4.0-11.0) Red Blood Count 4.60x10^6/uL (3.50-5.40) Hemoglobin 10.6g/dL (12.0-15.5) Hematocrit 33.5% (36.0-47.0) Mean Corpuscular Volume 73fL (79-100) Mean Corpuscular Hemoglobin 23pg (25-35) Mean Corpuscular Hemoglobin Concent 32g/dL (31-37) Red Cell Distribution Width 18.7% (11.5-14.5) Platelet Count 296x10^3/uL (140-400) Neutrophils (%) (Auto) 69% (31-73) Lymphocytes (%) (Auto) 20% (24-48) Monocytes (%) (Auto) 9% (0-9) Eosinophils (%) (Auto) 2% (0-3) Basophils (%) (Auto) 0% (0-3) Neutrophils # (Auto) 4.6x10^3uL (1.8-7.7) Lymphocytes # (Auto) 1.4x10^3/uL (1.0-4.8) Monocytes # (Auto) 0.6x10^3/uL (0.0-1.1) Eosinophils # (Auto) 0.1x10^3/uL (0.0-0.7) Basophils # (Auto) 0.0x10^3/uL (0.0-0.2) Sodium Level 137mmol/L (136-145) Potassium Level 4.2mmol/L (3.5-5.1) Chloride Level 104mmol/L (98-107) Carbon Dioxide Level 23mmol/L (21-32) Anion Gap 10 (6-14) Blood Urea Nitrogen 23mg/dL (7-20) Creatinine 1.3mg/dL (0.6-1.0) Estimated GFR (Cockcroft-Gault) 47.2 Glucose Level 96mg/dL (70-99) Calcium Level 8.5mg/dL (8.5-10.1) Medications Current Medications Sodium Chloride (Iv Sodium Chloride 0.9% 500ml Bag) 500 ml @ 500 mls/hr 1X ONCE IV Last administered on 01/31/17 09:15; Start 01/31/17 at 09:00; Stop 10/09 at 09:59; Status DC Fentanyl Citrate (Fentanyl 2ml Vial) 50 mcg 1X ONCE IV Last administered on 09:15; Start 01/31/17 at 09:15; Stop 01/31/17 at 09:16; Status DC Fentanyl Citrate 50 mcg 50 mcg 1X ONCE IV Last administered on 01/31/17 10:20 ; Start 01/31/17 at 10:15; Stop 01/31/17 at 10:16; Status DC Sodium Chloride (Iv Sodium Chloride 0.9% 500ml Bag) 500 ml @ 500 mls/hr 1X ONCE IV Last administered on 01/31/17 12:48; Start 01/31/17 at 11:15; Stop 10/09 at 12:14; Status DC Ondansetron HCl (Zofran) 4 mg PRN Q8HRS PRN IV NAUSEA/VOMITING; Start 01/31/17 at 12:00; Stop 01/31/17 at 17:21; Status DC Fentanyl Citrate (Fentanyl 2ml Vial) 50 mcg PRN Q2HR PRN IV PAIN; Start at 12:00; Stop 02/01/17 at 11:59; Status DC Acetaminophen 650 mg 650 mg PRN Q4HRS PRN PO FEVER; Start 01/31/17 at 12:00; Stop 01/31/17 at 17:21; Status DC Sodium Chloride (Iv Sodium Chloride 0.9% 1000ml Bag) 1,000 ml @ 100 mls/hr 1X ONCE IV Last administered on 01/31/17 12:48; Start 01/31/17 at 12:00; Stop 10/09 at 21:59; Status DC Cyclosporine (Restasis) 1 drop BID OU Last administered on 02/02/17 08:33; Start 01/31/17 at 21:00 Aspirin (Children'S Aspirin) 81 mg DAILYWBKFT PO ; Start 01/31/17 at 17:00; Stop 01/31/17 at 17:20; Status DC Ferrous Sulfate (Feosol) 325 mg DAILYWBKFT PO Last administered on 02/02/17 08 :33; Start 01/31/17 at 17:00 Pantoprazole Sodium (Protonix) 40 mg DAILYAC PO Last administered on 02/02/17 03:51; Start 01/31/17 at 17:00 Aspirin (Ecotrin) 81 mg DAILY PO Last administered on 02/02/17 08:33; Start at 09:00 Cyclosporine (Restasis) 1 drop BID OU ; Start 01/31/17 at 21:00; Status UNV Ferrous Sulfate (Feosol) 325 mg DAILY PO ; Start 02/01/17 at 09:00; Status UNV Pantoprazole Sodium (Protonix) 40 mg DAILY PO ; Start 02/01/17 at 09:00; Status UNV Heparin Sodium (Porcine) 5,000 unit Q8HRS SQ Last administered on 02/02/17 04: 01; Start 01/31/17 at 22:00 Tramadol HCl (Ultram) 50 mg PRN Q6HRS PRN PO MODERATE - SEVERE PAIN Last administered on 02/02/17 03:52; Start 01/31/17 at 17:15 Acetaminophen (Tylenol) 650 mg PRN Q6HRS PRN PO MILD PAIN / TEMP Last administered on 02/02/17 08:32; Start 01/31/17 at 17:15 Ondansetron HCl (Zofran) 4 mg PRN Q6HRS PRN IV NAUSEA/VOMITING; Start 01/31/17 at 17:15 Ciprofloxacin (Cipro) 500 mg BID PO Last administered on 02/01/17 08:57; Start 02/01/17 at 09:00; Stop 02/01/17 at 10:44; Status DC Ciprofloxacin (Cipro) 250 mg BID PO Last administered on 02/02/17 08:33; Start 02/01/17 at 21:00 Methylprednisolone Acetate (Depo-Medrol 40mg Vial) 40 mg 1X ONCE IM ; Start at 09:45; Stop 02/02/17 at 09:47; Status DC Bupivacaine HCl (Sensorcaine-Mpf 0.25%) 10 ml 1X ONCE IJ ; Start 02/02/17 at 09 :45; Stop 02/02/17 at 09:47; Status DC Acetaminophen/ Hydrocodone Bitart (Lortab 7.5/325) 1 tab PRN Q6HRS PRN PO PAIN Last administered on 02/02/17 10:04; Start 02/02/17 at 09:45 Active Scripts Active Restasis (Cyclosporine) 1 Drop Droperette 1 Drop OU BID 30 Days Reported Protonix (Pantoprazole Sodium) 40 Mg Tablet. 40 Mg PO DAILY OVER THE COUNTER MEDICATION Aspir 81 (Aspirin) 81 Mg Tablet.dr 81 Mg PO DAILY OVER THE COUNTER MEDICATION Ferrous Sulfate 325 Mg Tablet 325 Mg PO DAILY OVER THE COUNTER MEDICATION Vitals/I & O Vital Sign - Last 24 Hours 02/01/17 02/01/17 02/01/17 02/01/17 11:02 14:51 19:00 20:00 Temp 97.7 97.7 97.5 97.7 97.7 97.5 Pulse 80 94 89 Resp 18 B/P 89/57 118/65 108/66 Pulse Ox 94 97 95 O2 Delivery Room Air Room Air Room Air Room Air 02/01/17 02/01/17 02/01/17 02/02/17 20:51 21:51 23:00 03:00 Temp 98.1 98.4 98.1 98.4 Pulse 96 96 Resp 18 B/P 109/70 100/70 Pulse Ox 95 94 92 94 O2 Delivery Room Air Room Air Room Air 02/02/17 02/02/17 02/02/17 02/02/17 03:52 04:52 07:00 08:00 Temp 97.7 97.7 Pulse 79 Resp B/P 115/69 Pulse Ox 94 93 O2 Delivery Room Air Room Air Room Air Room Air 02/02/17 10:04 O2 Delivery Room Air Intake and Output 02/01/17 02/01/17 02/02/17 15:00 23:00 07:00 Intake Total 240 ml 470 ml 200 ml Balance 240 ml 470 ml 200 ml Lauri MURILLO MD Feb 02, 2017 10:48
[2017-02-02 11:00] VITALS: BP 115/65
[2017-02-02 14:53] VITALS: BP 107/67
[2017-02-02] MEDS ORDERED: GADOBUTROL 7.5 MMOL/7.5 ML VIAL IV ONE (15:00)
--- NOTE | 2017-02-02 15:40 | RAD ---
PROCEDURE MRI lumbar spine without and with contrast. HISTORY Left-sided low back pain after fall 2 days ago TECHNIQUE Multiplanar, multi sequential pre and post contrast MR imaging was performed of the lumbar spine. Contrast: 6.5 cc Gadavist. COMPARISON None FINDINGS There is grade 1 anterior spondylolisthesis at L4-5 at which there is facet degenerative change. Lumbar vertebral body stature is preserved. There is no nodular enhancement of the conus or cauda equina, no enhancement of the intervertebral disc spaces. There is moderate to severe degenerative disc disease L5-S1, mild to moderate degenerative disc disease L4-5 and L2-3, minimally at L1-2 and L3-4. There is posterior annular tear L1-2. Conus terminates normally at L1. Heterogeneity of the marrow signal may be due to senescent change, some scattered possible superimposed hemangiomas. Kidneys are not fully included, 2 right renal cysts visualized and probably a couple of tiny left renal cysts present. L1-L2: Spinal canal and neural foramina are adequate. There is shallow posterior protrusion. L2-3: There is minimal disc osteophyte complex. Spinal canal is adequate. Neural foramina are adequate. L3-4: There is a minimal posterior bulge. Spinal canal and neural foramina are adequate. L4-5: There is mild buckling of the ligamentum flavum and facet degenerative change. Spinal canal and neural foramina are adequate L5-S1: Spinal canal is adequate. There is very shallow posterior bulge/protrusion without significant impingement of the descending S1 nerve roots. Neural foramina are adequate. IMPRESSION 1. There is multilevel lumbar degenerative disc disease greatest at L5-S1, L1-2, L2-3. There is mild spondylosis. There is no significant lumbar spinal stenosis or neural foramina compromise. 2. There is grade 1 anterior spondylolisthesis at L4-5 at which there is facet degenerative change. Electronically signed by: Feliciano Smith MD (Feb 02, 2017 15:38:54)
--- NOTE | 2017-02-02 15:51 | RAD ---
Indication: Pain after fall 3 days ago. Technique: Lumbar spine series including oblique views contains 5 images. No comparison is available. Findings: There is bone demineralization. There is no fracture. Vertebral body height is maintained. There is anterolisthesis at L4-L5 which appears degenerative. There is no traumatic malalignment. Endplate spurring is noted throughout the lumbar spine. Facet hypertrophy is greatest at L4-L5 and L5-S1. Facet hypertrophy is greater on the left. Vascular calcifications are noted. Impression: Degenerative changes in the lumbar spine.
[2017-02-02 19:00] VITALS: BP 105/66
[2017-02-02 23:00] VITALS: BP 116/75
--- NOTE | 2017-02-03 01:28 | CONS ---
DATE OF CONSULTATION: 02/02/2017 ATTENDING PHYSICIAN: Dr. Mauri Yen. The patient was seen at the request of Dr. Yen for rehab evaluation. HISTORY OF PRESENT ILLNESS: This is an 86-year-old female who fell about 2 days prior to the hospitalization on 01/31/2017. She lives alone. She had [id number] dementia. She is walking to the bathroom and fell on the floor on her left side and back. She could not get up for about 10-12 hours. Later, she called her daughter who is a nurse and she was admitted with left wrist swelling and bruising and complaining of left hip area pain. The patient had some lower back pain on and off in the past. She had radiological studies including x-ray of left hip, left wrist, left elbow and pelvis, which revealed degenerative arthrosis involving first carpometacarpal joint of left thumb, hiatal hernia, early degenerative changes in both hips. CT scan of the brain failed to reveal any acute abnormality. The patient denies any numbness, tingling sensation in the extremities. She denies any trouble with her bowel or bladder control. She mainly complains of pain in her left wrist and left side of her lower back area. The patient admits some radiation of the left-sided pain to her left hip. The patient prior to the present hospitalization has been living alone. She is retired as a seamstress. She had three steps to enter the house plus basement where the washer and dryer located. She did not use any assistive devices to get around. She had a cane and walker at home. PHYSICAL EXAMINATION: Today revealed an elderly, thin built female. She is alert, oriented to time, place, person and circumstance and follows commands appropriately, moves all 4 extremities voluntarily where she had 4+/5 grade muscle strength. Deep tendon reflexes are 1 to 2+ and symmetrical with absent right ankle jerk. She had equal perception of touch and pinprick sensation bilaterally. She had right thenar eminence muscle atrophy and also mild edema of the left wrist and tenderness to palpation over the dorsal aspect of the left wrist and she had crepitus on range of motion of both knee joints without any obvious knee joint effusion. She had painful limited movements of her lumbar spine and tenderness to palpation over sacroiliac joint area and trochanteric bursa mainly on the right side. Straight leg raising test is causing pain on the left side. The patient had pain free range of motion on both hip joints. She requires help with bed mobility. I have not tested her transfers or ambulation skills at this time as she is having significant lower back pain with trying to roll from side to side even with physical assistance. Her skin is intact at this time. ASSESSMENT: An elderly female with recent fall and lumbar sprain and left wrist sprain, probably superimposed on degenerative disk disease and degenerative joint disease of lumbar vertebrae with left lumbar radiculitis. No clinical evidence of ongoing lumbar radiculopathy and also sprain left wrist superimposed on degenerative changes of left thumb, carpometacarpal joint and degenerative changes in both knees, clinical evidence of peripheral neuropathy and also to rule out right carpal tunnel syndrome. She had negative Tinel's sign over right median nerve at the anterior aspect of the wrist at present time. RECOMMENDATIONS: At her request, I have injected painful left sacroiliac joint under aseptic skin technique with Marcaine and Depo-Medrol solution and she tolerated the procedure satisfactorily to obtain MRI scan of her lumbar vertebrae to get her lumbar corset and she already had a wrist cock-up splint for use. To ask for a screen for transfer to rehab or fdc care unit of choice to her family. Dr Yen, I appreciate asking me to participate in care of this interesting patient. I will be glad to follow her with you as needed for her rehabilitation. LING CAMPO MD DR: JEFF/boaz JOB#: [id number] / [id number]
[2017-02-03 03:00] VITALS: BP 130/81
[2017-02-03] MEDS: HEPARIN PF for SUB-Q USE 5,000 UNIT/0.5 ML VIAL. SQ SCH ×2 (05:46→14:00)
[2017-02-03 07:00] VITALS: BP 145/86
--- NOTE | 2017-02-03 08:26 | PDOC ---
PROGRESS NOTES Subjective Subjective Patient was out of bed and in the chair eating breakfast this morning. She removed her wrist brace this morning and said her pain is improved today. She is experiencing a burning sensation along her left wrist but is able to make a fist and perform limited extension and flexion of her wrist. She is still having some low back pain but reports that her pain is well controlled with the current regimen. She states she has not had a bowel movement since being admitted but has no other acute complaints. Objective Objective Vital Signs Date Time Temp Pulse Resp B/P Pulse Ox O2 Delivery O2 Flow Rate FiO2 02/03/17 07:00 97.7 102 18 145/86 98 Room Air 97.7 Intake and Output 02/03/17 07:00 Intake Total 1200 ml Output Total 200 ml Balance 1000 ml Intake Oral 1200 ml Output Urine Total 200 ml # Voids 6 Physical Exam Abdomen: Normal bowel sounds, Soft, No tenderness Heart: Regular rate, Normal S1, Normal S2, No murmurs Extremities: Other (Tenderness and erythema over the left wrist, flexion and extension of wrist limited by pain) General: Alert, Cooperative, No acute distress MUSCULOSKELETAL: Abnormal exam of left (wrist tenderness and limited range of motion) Neuro: Normal speech Assessment Assessment Problems Medical Problems: (1) Weakness Status: Acute Plan Plan of Care (1) Weakness- improved per patient report, continue to work with PT/OT, recommend SNF or home health at discharge Status: Acute (2) Wrist pain- improved, continue Lortab prn Status: Acute Comment Review of Relevant I have reviewed the following items chilo (where applicable) has been applied. Labs Laboratory Tests Test 02/02/17 05:40 White Blood Count 6.7x10^3/uL (4.0-11.0) Red Blood Count 4.60x10^6/uL (3.50-5.40) Hemoglobin 10.6g/dL (12.0-15.5) Hematocrit 33.5% (36.0-47.0) Mean Corpuscular Volume 73fL (79-100) Mean Corpuscular Hemoglobin 23pg (25-35) Mean Corpuscular Hemoglobin Concent 32g/dL (31-37) Red Cell Distribution Width 18.7% (11.5-14.5) Platelet Count 296x10^3/uL (140-400) Neutrophils (%) (Auto) 69% (31-73) Lymphocytes (%) (Auto) 20% (24-48) Monocytes (%) (Auto) 9% (0-9) Eosinophils (%) (Auto) 2% (0-3) Basophils (%) (Auto) 0% (0-3) Neutrophils # (Auto) 4.6x10^3uL (1.8-7.7) Lymphocytes # (Auto) 1.4x10^3/uL (1.0-4.8) Monocytes # (Auto) 0.6x10^3/uL (0.0-1.1) Eosinophils # (Auto) 0.1x10^3/uL (0.0-0.7) Basophils # (Auto) 0.0x10^3/uL (0.0-0.2) Sodium Level 137mmol/L (136-145) Potassium Level 4.2mmol/L (3.5-5.1) Chloride Level 104mmol/L (98-107) Carbon Dioxide Level 23mmol/L (21-32) Anion Gap 10 (6-14) Blood Urea Nitrogen 23mg/dL (7-20) Creatinine 1.3mg/dL (0.6-1.0) Estimated GFR (Cockcroft-Gault) 47.2 Glucose Level 96mg/dL (70-99) Calcium Level 8.5mg/dL (8.5-10.1) Microbiology 01/31/17 Urine Culture - Final, Complete 01/31/17 Urine Culture Result 1 (RACHAEL) - Final, Complete Medications Current Medications Sodium Chloride (Iv Sodium Chloride 0.9% 500ml Bag) 500 ml @ 500 mls/hr 1X ONCE IV Last administered on 01/31/17 09:15; Start 01/31/17 at 09:00; Stop 10/09 at 09:59; Status DC Fentanyl Citrate (Fentanyl 2ml Vial) 50 mcg 1X ONCE IV Last administered on 09:15; Start 01/31/17 at 09:15; Stop 01/31/17 at 09:16; Status DC Fentanyl Citrate 50 mcg 50 mcg 1X ONCE IV Last administered on 01/31/17 10:20 ; Start 01/31/17 at 10:15; Stop 01/31/17 at 10:16; Status DC Sodium Chloride (Iv Sodium Chloride 0.9% 500ml Bag) 500 ml @ 500 mls/hr 1X ONCE IV Last administered on 01/31/17 12:48; Start 01/31/17 at 11:15; Stop 10/09 at 12:14; Status DC Ondansetron HCl (Zofran) 4 mg PRN Q8HRS PRN IV NAUSEA/VOMITING; Start 01/31/17 at 12:00; Stop 01/31/17 at 17:21; Status DC Fentanyl Citrate (Fentanyl 2ml Vial) 50 mcg PRN Q2HR PRN IV PAIN; Start at 12:00; Stop 02/01/17 at 11:59; Status DC Acetaminophen 650 mg 650 mg PRN Q4HRS PRN PO FEVER; Start 01/31/17 at 12:00; Stop 01/31/17 at 17:21; Status DC Sodium Chloride (Iv Sodium Chloride 0.9% 1000ml Bag) 1,000 ml @ 100 mls/hr 1X ONCE IV Last administered on 01/31/17 12:48; Start 01/31/17 at 12:00; Stop 10/09 at 21:59; Status DC Cyclosporine (Restasis) 1 drop BID OU Last administered on 02/02/17 20:43; Start 01/31/17 at 21:00 Aspirin (Children'S Aspirin) 81 mg DAILYWBKFT PO ; Start 01/31/17 at 17:00; Stop 01/31/17 at 17:20; Status DC Ferrous Sulfate (Feosol) 325 mg DAILYWBKFT PO Last administered on 02/02/17 08 :33; Start 01/31/17 at 17:00 Pantoprazole Sodium (Protonix) 40 mg DAILYAC PO Last administered on 02/02/17 03:51; Start 01/31/17 at 17:00 Aspirin (Ecotrin) 81 mg DAILY PO Last administered on 02/02/17 08:33; Start at 09:00 Cyclosporine (Restasis) 1 drop BID OU ; Start 01/31/17 at 21:00; Status UNV Ferrous Sulfate (Feosol) 325 mg DAILY PO ; Start 02/01/17 at 09:00; Status UNV Pantoprazole Sodium (Protonix) 40 mg DAILY PO ; Start 02/01/17 at 09:00; Status UNV Heparin Sodium (Porcine) 5,000 unit Q8HRS SQ Last administered on 02/03/17 05: 46; Start 01/31/17 at 22:00 Tramadol HCl (Ultram) 50 mg PRN Q6HRS PRN PO MODERATE PAIN Last administered on 02/02/17 03:52; Start 01/31/17 at 17:15 Acetaminophen (Tylenol) 650 mg PRN Q6HRS PRN PO MILD PAIN / TEMP Last administered on 02/02/17 08:32; Start 01/31/17 at 17:15 Ondansetron HCl (Zofran) 4 mg PRN Q6HRS PRN IV NAUSEA/VOMITING; Start 01/31/17 at 17:15 Ciprofloxacin (Cipro) 500 mg BID PO Last administered on 02/01/17 08:57; Start 02/01/17 at 09:00; Stop 02/01/17 at 10:44; Status DC Ciprofloxacin (Cipro) 250 mg BID PO Last administered on 02/02/17 20:43; Start 02/01/17 at 21:00 Methylprednisolone Acetate (Depo-Medrol 40mg Vial) 40 mg 1X ONCE IM ; Start at 09:45; Stop 02/02/17 at 09:47; Status DC Bupivacaine HCl (Sensorcaine-Mpf 0.25%) 10 ml 1X ONCE IJ ; Start 02/02/17 at 09 :45; Stop 02/02/17 at 09:47; Status DC Acetaminophen/ Hydrocodone Bitart (Lortab 7.5/325) 1 tab PRN Q6HRS PRN PO PAIN Last administered on 02/02/17 10:04; Start 02/02/17 at 09:45; Stop 02/02/17 at 14:05; Status DC Acetaminophen/ Hydrocodone Bitart (Lortab 7.5/325) 1 tab PRN Q6HRS PRN PO SEVERE PAIN; Start 02/02/17 at 11:00 Gadobutrol (Gadavist) 6.5 mmol 1X ONCE IV Last administered on 02/02/17 15:15 ; Start 02/02/17 at 15:00; Stop 02/02/17 at 15:03; Status DC Active Scripts Active Restasis (Cyclosporine) 1 Drop Droperette 1 Drop OU BID 30 Days Reported Protonix (Pantoprazole Sodium) 40 Mg Tablet. 40 Mg PO DAILY OVER THE COUNTER MEDICATION Aspir 81 (Aspirin) 81 Mg Tablet. 81 Mg PO DAILY OVER THE COUNTER MEDICATION Ferrous Sulfate 325 Mg Tablet 325 Mg PO DAILY OVER THE COUNTER MEDICATION Vitals/I & O Vital Sign - Last 24 Hours 02/02/17 02/02/17 02/02/17 02/02/17 10:04 11:00 12:10 14:53 Temp 97.7 97.7 97.7 97.7 Pulse 79 80 Resp 18 B/P 115/65 107/67 Pulse Ox 94 95 O2 Delivery Room Air Room Air Room Air Room Air 02/02/17 02/02/17 02/03/17 02/03/17 19:00 23:00 03:00 07:00 Temp 98.8 98.6 97.8 97.7 98.8 98.6 97.8 97.7 Pulse 98 91 96 102 Resp B/P 105/66 116/75 130/81 145/86 Pulse Ox 97 100 98 98 O2 Delivery Room Air Intake and Output 02/02/17 02/02/17 02/03/17 15:00 23:00 07:00 Intake Total 240 ml 720 ml 240 ml Output Total 200 ml Balance 240 ml 720 ml 40 ml Lauri MURILLO MD Feb 03, 2017 08:26
[2017-02-03] MEDS ORDERED: DOCUSATE SODIUM 100 MG CAPSULE PO PRN (08:30)
[2017-02-03] MEDS: CIPROFLOXACIN HCL 250 MG TABLET PO SCH (08:51)
[2017-02-03] MEDS: PANTOPRAZOLE 40 MG TABLET. PO SCH (08:51)
[2017-02-03] MEDS: FERROUS SULFATE 325 MG TABLET PO SCH (08:52)
[2017-02-03] MEDS: ASPIRIN ENTERIC COATED 81 MG TABLET.DR. PO SCH (08:52)
[2017-02-03] MEDS: CYCLOSPORINE 0.05% OPTH DROPERETTE. OU SCH (08:53)
--- NOTE | 2017-02-03 10:13 | PDOC ---
PROGRESS NOTES Subjective Subjective She feels better. Objective Objective Vital Signs Date Time Temp Pulse Resp B/P Pulse Ox O2 Delivery O2 Flow Rate FiO2 02/03/17 08:52 Room Air 02/03/17 07:00 97.7 102 18 145/86 98 97.7 Intake and Output 02/03/17 07:00 Intake Total 1200 ml Output Total 200 ml Balance 1000 ml Intake Oral 1200 ml Output Urine Total 200 ml # Voids 6 Physical Exam Physical Exam She is awake and she got up and walked with roller walker.She continues with tenderness to palpation over left wrist. Assessment Assessment Problems Medical Problems: (1) Weakness Status: Acute Plan Plan of Residential with home health or SNF transfer when medically stable. Comment Review of Relevant I have reviewed the following items chilo (where applicable) has been applied. Labs Laboratory Tests Test 02/02/17 05:40 White Blood Count 6.7x10^3/uL (4.0-11.0) Red Blood Count 4.60x10^6/uL (3.50-5.40) Hemoglobin 10.6g/dL (12.0-15.5) Hematocrit 33.5% (36.0-47.0) Mean Corpuscular Volume 73fL (79-100) Mean Corpuscular Hemoglobin 23pg (25-35) Mean Corpuscular Hemoglobin Concent 32g/dL (31-37) Red Cell Distribution Width 18.7% (11.5-14.5) Platelet Count 296x10^3/uL (140-400) Neutrophils (%) (Auto) 69% (31-73) Lymphocytes (%) (Auto) 20% (24-48) Monocytes (%) (Auto) 9% (0-9) Eosinophils (%) (Auto) 2% (0-3) Basophils (%) (Auto) 0% (0-3) Neutrophils # (Auto) 4.6x10^3uL (1.8-7.7) Lymphocytes # (Auto) 1.4x10^3/uL (1.0-4.8) Monocytes # (Auto) 0.6x10^3/uL (0.0-1.1) Eosinophils # (Auto) 0.1x10^3/uL (0.0-0.7) Basophils # (Auto) 0.0x10^3/uL (0.0-0.2) Sodium Level 137mmol/L (136-145) Potassium Level 4.2mmol/L (3.5-5.1) Chloride Level 104mmol/L (98-107) Carbon Dioxide Level 23mmol/L (21-32) Anion Gap 10 (6-14) Blood Urea Nitrogen 23mg/dL (7-20) Creatinine 1.3mg/dL (0.6-1.0) Estimated GFR (Cockcroft-Gault) 47.2 Glucose Level 96mg/dL (70-99) Calcium Level 8.5mg/dL (8.5-10.1) Microbiology 01/31/17 Urine Culture - Final, Complete 01/31/17 Urine Culture Result 1 (RACHAEL) - Final, Complete Medications Current Medications Sodium Chloride (Iv Sodium Chloride 0.9% 500ml Bag) 500 ml @ 500 mls/hr 1X ONCE IV Last administered on 01/31/17 09:15; Start 01/31/17 at 09:00; Stop 10/09 at 09:59; Status DC Fentanyl Citrate (Fentanyl 2ml Vial) 50 mcg 1X ONCE IV Last administered on 09:15; Start 01/31/17 at 09:15; Stop 01/31/17 at 09:16; Status DC Fentanyl Citrate 50 mcg 50 mcg 1X ONCE IV Last administered on 01/31/17 10:20 ; Start 01/31/17 at 10:15; Stop 01/31/17 at 10:16; Status DC Sodium Chloride (Iv Sodium Chloride 0.9% 500ml Bag) 500 ml @ 500 mls/hr 1X ONCE IV Last administered on 01/31/17 12:48; Start 01/31/17 at 11:15; Stop 10/09 at 12:14; Status DC Ondansetron HCl (Zofran) 4 mg PRN Q8HRS PRN IV NAUSEA/VOMITING; Start 01/31/17 at 12:00; Stop 01/31/17 at 17:21; Status DC Fentanyl Citrate (Fentanyl 2ml Vial) 50 mcg PRN Q2HR PRN IV PAIN; Start at 12:00; Stop 02/01/17 at 11:59; Status DC Acetaminophen 650 mg 650 mg PRN Q4HRS PRN PO FEVER; Start 01/31/17 at 12:00; Stop 01/31/17 at 17:21; Status DC Sodium Chloride (Iv Sodium Chloride 0.9% 1000ml Bag) 1,000 ml @ 100 mls/hr 1X ONCE IV Last administered on 01/31/17 12:48; Start 01/31/17 at 12:00; Stop 10/09 at 21:59; Status DC Cyclosporine (Restasis) 1 drop BID OU Last administered on 02/03/17 08:53; Start 01/31/17 at 21:00 Aspirin (Children'S Aspirin) 81 mg DAILYWBKFT PO ; Start 01/31/17 at 17:00; Stop 01/31/17 at 17:20; Status DC Ferrous Sulfate (Feosol) 325 mg DAILYWBKFT PO Last administered on 02/03/17 08 :52; Start 01/31/17 at 17:00 Pantoprazole Sodium (Protonix) 40 mg DAILYAC PO Last administered on 02/03/17 08:51; Start 01/31/17 at 17:00 Aspirin (Ecotrin) 81 mg DAILY PO Last administered on 02/03/17 08:52; Start at 09:00 Cyclosporine (Restasis) 1 drop BID OU ; Start 01/31/17 at 21:00; Status UNV Ferrous Sulfate (Feosol) 325 mg DAILY PO ; Start 02/01/17 at 09:00; Status UNV Pantoprazole Sodium (Protonix) 40 mg DAILY PO ; Start 02/01/17 at 09:00; Status UNV Heparin Sodium (Porcine) 5,000 unit Q8HRS SQ Last administered on 02/03/17 05: 46; Start 01/31/17 at 22:00 Tramadol HCl (Ultram) 50 mg PRN Q6HRS PRN PO MODERATE PAIN Last administered on 02/02/17 03:52; Start 01/31/17 at 17:15 Acetaminophen (Tylenol) 650 mg PRN Q6HRS PRN PO MILD PAIN / TEMP Last administered on 02/02/17 08:32; Start 01/31/17 at 17:15 Ondansetron HCl (Zofran) 4 mg PRN Q6HRS PRN IV NAUSEA/VOMITING; Start 01/31/17 at 17:15 Ciprofloxacin (Cipro) 500 mg BID PO Last administered on 02/01/17 08:57; Start 02/01/17 at 09:00; Stop 02/01/17 at 10:44; Status DC Ciprofloxacin (Cipro) 250 mg BID PO Last administered on 02/03/17 08:51; Start 02/01/17 at 21:00 Methylprednisolone Acetate (Depo-Medrol 40mg Vial) 40 mg 1X ONCE IM ; Start at 09:45; Stop 02/02/17 at 09:47; Status DC Bupivacaine HCl (Sensorcaine-Mpf 0.25%) 10 ml 1X ONCE IJ ; Start 02/02/17 at 09 :45; Stop 02/02/17 at 09:47; Status DC Acetaminophen/ Hydrocodone Bitart (Lortab 7.5/325) 1 tab PRN Q6HRS PRN PO PAIN Last administered on 02/02/17 10:04; Start 02/02/17 at 09:45; Stop 02/02/17 at 14:05; Status DC Acetaminophen/ Hydrocodone Bitart (Lortab 7.5/325) 1 tab PRN Q6HRS PRN PO SEVERE PAIN Last administered on 02/03/17 08:52; Start 02/02/17 at 11:00 Gadobutrol (Gadavist) 6.5 mmol 1X ONCE IV Last administered on 02/02/17 15:15 ; Start 02/02/17 at 15:00; Stop 02/02/17 at 15:03; Status DC Docusate Sodium (Colace) 100 mg PRN DAILY PRN PO CONSTIPATION Last administered on 02/03/17 08:51; Start 02/03/17 at 08:30 Active Scripts Active Restasis (Cyclosporine) 1 Drop Droperette 1 Drop OU BID 30 Days Reported Protonix (Pantoprazole Sodium) 40 Mg Tablet. 40 Mg PO DAILY OVER THE COUNTER MEDICATION Aspir 81 (Aspirin) 81 Mg Tablet.dr 81 Mg PO DAILY OVER THE COUNTER MEDICATION Ferrous Sulfate 325 Mg Tablet 325 Mg PO DAILY OVER THE COUNTER MEDICATION Vitals/I & O Vital Sign - Last 24 Hours 02/02/17 02/02/17 02/02/17 02/02/17 11:00 12:10 14:53 19:00 Temp 97.7 97.7 98.8 97.7 97.7 98.8 Pulse 79 80 98 Resp 18 20 B/P 115/65 107/67 105/66 Pulse Ox 94 95 97 O2 Delivery Room Air Room Air Room Air 02/02/17 02/03/17 02/03/17 02/03/17 23:00 03:00 07:00 08:52 Temp 98.6 97.8 97.7 98.6 97.8 97.7 Pulse 91 96 102 Resp 18 B/P 116/75 130/81 145/86 Pulse Ox 100 98 98 O2 Delivery Room Air Room Air Intake and Output 02/02/17 02/02/17 02/03/17 15:00 23:00 07:00 Intake Total 240 ml 720 ml 240 ml Output Total 200 ml Balance 240 ml 720 ml 40 ml LING CAMPO MD Feb 03, 2017 10:13
[2017-02-03 10:53] VITALS: BP 136/85
[2017-02-03 15:08] VITALS: BP 134/80
[2017-02-03] MEDS ORDERED: DOCU100C5 PO (16:47)
[2017-02-03] MEDS ORDERED: ACET325T9 PO (16:47)
[2017-02-03] MEDS ORDERED: HYDR-2762 PO (16:48)
--- NOTE | 2017-02-03 18:16 | PDOC ---
Provider Note Provider Note discharge dictated # [id number] Lauri MURILLO MD Feb 03, 2017 18:16
--- NOTE | 2017-02-04 00:47 | DS ---
DATE OF DISCHARGE: 02/03/2017 ADMISSION DIAGNOSES: Fall at home with weakness, back pain, left wrist pain. DISCHARGE DIAGNOSES: Fall at home with weakness, back pain, left wrist pain. ASSOCIATED DIAGNOSES: Dementia, history of heart disease, history of stroke, type 2 diabetes, chronic kidney disease. HISTORY AND HOSPITAL COURSE: This is an 86-year-old female who sustained a fall at home that was unwitnessed. Because of pain and discomfort, she was sent to the Emergency Room by her daughter. There is no history of her being down for any prolonged period of time, losing any consciousness. She was seen in the Emergency Room and evaluated because of her back, hip and left wrist pain, inability to care for herself. She was admitted. She was placed in a wrist brace. Her back pain has improved. Imaging studies showed no fractures. Lumbar x-ray showed degenerative changes and some spondylolisthesis. MRI imaging of her back showed no disk herniations or fractures. She did have grade 1 spondylolisthesis of L4-L5. 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 She is up walking with her walker. No arrhythmia issues were identified. No other significant abnormalities were encountered. Dr. Bales was consulted and saw her in consultation. He is recommending home with home health. PT and OT have seen her and assessed her and I feel that would be adequate. Her lab studies showed an initial white count slightly elevated at 12.8 and a possible UTI and she was started on antibiotics. Her hemoglobin dropped with hydration to 10.6. Her creatinine state level though at 1.2-1.3 range. Her BUN range from 20-23. Her hemoglobin A1c is 5.8. Her creatinine kinase was normal. Her troponin was unremarkable. Her electrolytes were normal. Urinalysis was negative and urine culture showed lactobacillus species (greater than 100,000). She will be discharged home with home health. She will continue Tylenol p.r.n., aspirin daily 81 mg, Restasis drops b.i.d., docusate capsule daily p.r.n. constipation, iron daily, Lortab 1 q.6h. p.r.n. pain, number 100, pantoprazole 40 mg. She finished 3-day course of Cipro and will not be continued on it. She has had her baseline mental status. [facility] was suggested, but the patient declined as did her family. She remains relatively high fall risk, hopefully they will allow home health, PT and OT to continue to work with her and encourage her to get stronger. W Bre MURILLO MD DR: GEORGE/boaz JOB#: [id number] / [id number]
== END 2017-02-03 19:51 | disposition home or self-care (01) | DRG 552 ==
LOC: ER 08:39 → 5 SOUTH 11:49
PROVIDERS: ADMIT Family Medicine; ATTEND Family Medicine
DX: M54.89 Other dorsalgia (principal); N39.0 Urinary tract infection, site not specified; M79.602 Pain in left arm; M25.532 Pain in left wrist; D64.9 Anemia, unspecified; Z60.2 Problems related to living alone; E11.22 Type 2 diabetes mellitus with diabetic chronic kidney disease; F03.90 Unspecified dementia, unspecified severity, without behavioral disturbance, psychotic disturbance, mood disturbance, and anxiety; W18.39XA Other fall on same level, initial encounter; K21.9 Gastro-esophageal reflux disease without esophagitis; M16.0 Bilateral primary osteoarthritis of hip; M43.16 Spondylolisthesis, lumbar region; N18.3 Chronic kidney disease, stage 3 (moderate); R29.6 Repeated falls; M47.26 Other spondylosis with radiculopathy, lumbar region; Z82.3 Family history of stroke; Z86.73 Personal history of transient ischemic attack (TIA), and cerebral infarction without residual deficits; Z91.81 History of falling; Z90.710 Acquired absence of both cervix and uterus; Z79.82 Long term (current) use of aspirin; Y93.89 Activity, other specified; Y92.89 Other specified places as the place of occurrence of the external cause; Y99.8 Other external cause status
CPT/HCPCS: 29125; 36415; 70450; 71010; 72110; 72158; 73080; 73110; 73502; 80048; 81001; 82550; 83036; 84484; 85007; 85027; 87086; 93005; 96361; 96374; 96376; J3010; J7030; J7040; 97116; 97530; 97535; 99285-25; A9585

== ENCOUNTER → 2018-11-02 | Outpatient (CLI) | payer MEDICARE ==
[~2018-11-02] MED LIST changes: +ACET325T9 PO; +CYCL1DRO EACHEYE; +DOCU100C28 PO; -FERR-26 PO; +FERR325T14 PO; +HYDR-2765 PO; -LEVO25TA2 PO; +LEVO25TA55 PO
== END | disposition home or self-care (01) ==
LOC: PMGWOUND 10:59
PROVIDERS: ATTEND Emergency Medicine Undersea and Hyperbaric Medicine
DX: E11.622 Type 2 diabetes mellitus with other skin ulcer (principal); L89.153 Pressure ulcer of sacral region, stage 3; L98.491 Non-pressure chronic ulcer of skin of other sites limited to breakdown of skin; E11.22 Type 2 diabetes mellitus with diabetic chronic kidney disease; N18.3 Chronic kidney disease, stage 3 (moderate); K21.9 Gastro-esophageal reflux disease without esophagitis; F03.90 Unspecified dementia, unspecified severity, without behavioral disturbance, psychotic disturbance, mood disturbance, and anxiety; M16.0 Bilateral primary osteoarthritis of hip; Z90.710 Acquired absence of both cervix and uterus; Z86.73 Personal history of transient ischemic attack (TIA), and cerebral infarction without residual deficits
CPT/HCPCS: 97597

== ENCOUNTER → 2018-11-09 | Outpatient (CLI) | payer MEDICARE | END | disposition home or self-care (01) | LOC: PMGWOUND 10:54 | PROVIDERS: ATTEND Emergency Medicine Undersea and Hyperbaric Medicine | DX: E11.622 Type 2 diabetes mellitus with other skin ulcer (principal); L89.153 Pressure ulcer of sacral region, stage 3; L98.411 Non-pressure chronic ulcer of buttock limited to breakdown of skin; M16.0 Bilateral primary osteoarthritis of hip; K21.9 Gastro-esophageal reflux disease without esophagitis; F03.90 Unspecified dementia, unspecified severity, without behavioral disturbance, psychotic disturbance, mood disturbance, and anxiety; Z90.710 Acquired absence of both cervix and uterus; Z87.891 Personal history of nicotine dependence; Z86.73 Personal history of transient ischemic attack (TIA), and cerebral infarction without residual deficits | CPT/HCPCS: 99213 ==

== ENCOUNTER → 2018-11-18 | Outpatient (CLI) | payer MEDICARE | END | disposition home or self-care (01) | LOC: PMGWOUND 11:09 | PROVIDERS: ATTEND Emergency Medicine Undersea and Hyperbaric Medicine | DX: E11.622 Type 2 diabetes mellitus with other skin ulcer (principal); L89.153 Pressure ulcer of sacral region, stage 3; L98.491 Non-pressure chronic ulcer of skin of other sites limited to breakdown of skin; E11.22 Type 2 diabetes mellitus with diabetic chronic kidney disease; N18.3 Chronic kidney disease, stage 3 (moderate); K21.9 Gastro-esophageal reflux disease without esophagitis; F03.90 Unspecified dementia, unspecified severity, without behavioral disturbance, psychotic disturbance, mood disturbance, and anxiety; M16.0 Bilateral primary osteoarthritis of hip; Z90.710 Acquired absence of both cervix and uterus; Z87.891 Personal history of nicotine dependence; Z86.73 Personal history of transient ischemic attack (TIA), and cerebral infarction without residual deficits | CPT/HCPCS: 97597 ==

== ENCOUNTER → 2018-12-02 | Outpatient (CLI) | payer MEDICARE | END | disposition home or self-care (01) | LOC: PMGWOUND 11:05 | PROVIDERS: ATTEND Emergency Medicine Undersea and Hyperbaric Medicine | DX: E11.622 Type 2 diabetes mellitus with other skin ulcer (principal); L89.153 Pressure ulcer of sacral region, stage 3; L98.491 Non-pressure chronic ulcer of skin of other sites limited to breakdown of skin; E11.22 Type 2 diabetes mellitus with diabetic chronic kidney disease; N18.3 Chronic kidney disease, stage 3 (moderate); K21.9 Gastro-esophageal reflux disease without esophagitis; F03.90 Unspecified dementia, unspecified severity, without behavioral disturbance, psychotic disturbance, mood disturbance, and anxiety; M16.0 Bilateral primary osteoarthritis of hip; Z90.710 Acquired absence of both cervix and uterus; Z87.891 Personal history of nicotine dependence; Z86.73 Personal history of transient ischemic attack (TIA), and cerebral infarction without residual deficits | CPT/HCPCS: 99213 ==

== ENCOUNTER → 2018-12-16 | Outpatient (CLI) | payer MEDICARE | END | disposition home or self-care (01) | LOC: PMGWOUND 09:16 | PROVIDERS: ATTEND Emergency Medicine Undersea and Hyperbaric Medicine | DX: E11.622 Type 2 diabetes mellitus with other skin ulcer (principal); L89.153 Pressure ulcer of sacral region, stage 3; L98.491 Non-pressure chronic ulcer of skin of other sites limited to breakdown of skin; E11.22 Type 2 diabetes mellitus with diabetic chronic kidney disease; N18.3 Chronic kidney disease, stage 3 (moderate); K21.9 Gastro-esophageal reflux disease without esophagitis; F03.90 Unspecified dementia, unspecified severity, without behavioral disturbance, psychotic disturbance, mood disturbance, and anxiety; M16.0 Bilateral primary osteoarthritis of hip; Z87.891 Personal history of nicotine dependence; Z90.710 Acquired absence of both cervix and uterus; Z86.73 Personal history of transient ischemic attack (TIA), and cerebral infarction without residual deficits | CPT/HCPCS: 99213 ==

== ENCOUNTER → 2019-01-06 | Outpatient (CLI) | payer MEDICARE ==
[~2019-01-06] MED LIST changes: -PANT40TA3 PO; +PANT40TA77 PO
== END | disposition home or self-care (01) ==
LOC: PMGWOUND 10:59
PROVIDERS: ATTEND Emergency Medicine Undersea and Hyperbaric Medicine
DX: E11.622 Type 2 diabetes mellitus with other skin ulcer (principal); L89.153 Pressure ulcer of sacral region, stage 3; L98.491 Non-pressure chronic ulcer of skin of other sites limited to breakdown of skin; I12.9 Hypertensive chronic kidney disease with stage 1 through stage 4 chronic kidney disease, or unspecified chronic kidney disease; E11.22 Type 2 diabetes mellitus with diabetic chronic kidney disease; N18.3 Chronic kidney disease, stage 3 (moderate); M16.0 Bilateral primary osteoarthritis of hip; K21.9 Gastro-esophageal reflux disease without esophagitis; F03.90 Unspecified dementia, unspecified severity, without behavioral disturbance, psychotic disturbance, mood disturbance, and anxiety; Z90.710 Acquired absence of both cervix and uterus; Z87.891 Personal history of nicotine dependence; Z86.73 Personal history of transient ischemic attack (TIA), and cerebral infarction without residual deficits
CPT/HCPCS: 99214; G0463

== ENCOUNTER → 2019-01-20 | Outpatient (CLI) | payer MEDICARE ==
[~2019-01-20] MED LIST changes: +PANT40TA3 PO; -PANT40TA77 PO
== END | disposition home or self-care (01) ==
LOC: PMGWOUND 11:09
PROVIDERS: ATTEND Emergency Medicine Undersea and Hyperbaric Medicine
DX: E11.622 Type 2 diabetes mellitus with other skin ulcer (principal); L89.153 Pressure ulcer of sacral region, stage 3; L98.491 Non-pressure chronic ulcer of skin of other sites limited to breakdown of skin; I12.9 Hypertensive chronic kidney disease with stage 1 through stage 4 chronic kidney disease, or unspecified chronic kidney disease; N18.3 Chronic kidney disease, stage 3 (moderate); M16.0 Bilateral primary osteoarthritis of hip; K21.9 Gastro-esophageal reflux disease without esophagitis; F03.90 Unspecified dementia, unspecified severity, without behavioral disturbance, psychotic disturbance, mood disturbance, and anxiety; Z87.891 Personal history of nicotine dependence; Z90.710 Acquired absence of both cervix and uterus; Z86.73 Personal history of transient ischemic attack (TIA), and cerebral infarction without residual deficits
CPT/HCPCS: 99214; G0463